=== PATIENT | male | born 1960 | race Caucasian/White ===

== ENCOUNTER 2017-01-08 23:13 | Emergency (ER) | payer SELFPAY ==
[~2017-01-08] VITALS: Ht 167.6 cm; Wt 56.0 kg
[~2017-01-08 23:13] MED LIST: ALBU8I INH
[2017-01-08 23:14] VITALS: BP 155/95; PULSE 81; RESP 16; TEMP 98; O2SAT 97
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
[2017-01-09] MEDS ORDERED: ONDANSETRON ODT 4 MG TAB PO ONE
[2017-01-09] MEDS ORDERED: ACETAMINOPHEN/HYDROcodone 325 MG/5 MG TAB PO ONE
[2017-01-09] MEDS ORDERED: HYDR-3533 PO ×2 (01:01→01:10)
[2017-01-09] MEDS ORDERED: IBUP800T23 PO (01:10)
[2017-01-09] MEDS ORDERED: SILV1CRE80 TOPICAL (01:10)
[2017-01-09] MEDS ORDERED: SILVER SULFADIAZINE 1% CR 50 GM JAR TOPICAL ONE (01:15)
== END 2017-01-09 02:12 | disposition home or self-care (01) ==
LOC: NEPK 23:13
DX: T23.231A Burn of second degree of multiple right fingers (nail), not including thumb, initial encounter (principal); X08.8XXA Exposure to other specified smoke, fire and flames, initial encounter; Z72.0 Tobacco use
CPT/HCPCS: 12001; 16020

== ENCOUNTER 2017-03-26 01:17 | Emergency (ER) | payer SELFPAY ==
[~2017-03-26] VITALS: Ht 172.7 cm; Wt 62.0 kg
[~2017-03-26 01:17] MED LIST changes: +HYDR-3533 PO; +IBUP800T23 PO; +SILV1CRE80 TOPICAL
[2017-03-26 01:21] VITALS: BP 124/83; PULSE 104; RESP 22; TEMP 98.5; O2SAT 92
== END 2017-03-26 03:00 | disposition left against medical advice (07) ==
LOC: NED 01:17
DX: R68.89 Other general symptoms and signs (principal)
CPT/HCPCS: 99281